=== PATIENT | female | born 1990 | race Caucasian/White ===

== ENCOUNTER 2016-10-19 21:18 | Emergency (ER) | payer SELFPAY ==
[~2016-10-19 21:18] MED LIST: CIPR500T93 PO; NAPR550 PO; PYRI200T4 PO; ULTR50TA PO; Z.0.BCPILL PO
[2016-10-19 23:03] LABS: HEMATOCRIT 28.7 % (35.0-46.0); MEAN CELL VOLUME 76.7 FL (80.0-100.0); MEAN CORPUSCULAR HEMOGLOBIN 24.4 PG (27.0-34.0); MEAN CORPUSCULAR HGB CONC 31.9 % (32.0-36.0); PLATELET COUNT 194 TH/MM3 (150-450); RED BLOOD COUNT 3.75 MIL/MM3 (4.00-5.30); RED CELL DISTRIBUTION WIDTH 16.6 % (11.6-17.2); REVIEW FLAG FINAL; WHITE BLOOD COUNT 18.4 TH/MM3 (4.0-11.0)
[2016-10-19 23:10] LABS: AMPHETAMINE, URINE NEG (NEG); BARBITURATES, URINE NEG (NEG); COCAINE, URINE NEG (NEG)
[2016-10-19 23:12] LABS: BLOOD, URINE NEG (NEG); COMMENT (UR) CULT NOT INDICATED; CULTURE IF INDICATED CULT NOT INDICATED; GLUCOSE,URINE NEG (NEG); KETONE, URINE 10 mg/dL (NEG); MUCUS URINE FEW /lpf (OCC); NITRITE,URINE NEG (NEG); PH, URINE 6.5 (5.0-8.5); SQUAMOUS EPITHELIAL CELL URINE 2 /hpf (0-5); URINE COLOR YELLOW (YELLW/STRAW)
[2016-10-19 23:19] LABS: ALT (GPT) 13 U/L (10-53); ANION GAP 9 MEQ/L (5-15); AST (GOT) 13 U/L (15-37); BICARBONATE 25.4 MEQ/L (21.0-32.0); BLOOD UREA NITROGEN 7 MG/DL (7-18); CHLORIDE 104 MEQ/L (98-107); GLOMERULAR FILTRATION RATE 151 ML/MIN (>89); POTASSIUM 3.6 MEQ/L (3.5-5.1); SODIUM (NA) 138 MEQ/L (136-145)
[2016-10-19 23:21] LABS: ALKALINE PHOSPHATASE 84 U/L (45-117); TOTAL BILIRUBIN ADULT 0.2 MG/DL (0.2-1.0)
[2016-10-19] MEDS ORDERED: DULC10SU3 RECTAL (23:48)
[2016-10-19] MEDS ORDERED: CEPH-460 PO (23:49)
--- NOTE | 2016-10-19 23:49 | PD ---
HPI Chief Complaint Abdominal and back pain, no BM and last 4 days Date Seen: Oct 19, 2016 Travel History International Travel<30 Days: No Contact w/Intl Traveler<30Days: No Known Affected Area: No History of Present Illness HPI 26-year-old white female at 24 weeks who is here on vacation is from out of town [facility] presents complaining of severe abdominal and back pain started earlier today. Denies bleeding or leakage of fluid. heart tones are reactive for 24 weeks and no contractions seen Para: 1 : 6 History Obstetric History Obstetric History One vaginal delivery 4 early ABs Social History Alcohol Use: No Tobacco Use: No Substance Abuse: No Allergies-Medications (Allergen,Severity, Reaction): Coded Allergies: Lortab (Verified Allergy, Severe, VOMITING, 08/17/12) Home Meds Active Scripts Ciprofloxacin HCl (Cipro)500 Mg [id number] Mg PO BID #20 Prov:Brooklyn Contreras MD 08/18/12 Phenazopyridine Hcl (Pyridium)200 Mg [id number] Mg PO Q8HPRN #6 Prov:Brooklyn Contreras MD 08/18/12 Naproxen Sodium (Anaprox Ds)550 Mg [id number] Mg PO BIDPRN #20 Prov:Brooklyn Contreras MD 08/18/12 Reported Medications Miscellaneous ( Control Pills) Tab1 Tab PO DAILY 08/17/12 Tramadol HCl (Ultram)50 Mg Tab50 Mg PO Q6HPRN 08/17/12 Review of Systems General / Constitutional: No: Fever, Weight Gain, Chills, Other Eyes: No: Diploplia, Blurred Vision, Visual changes, Pain, Photophobia HENT: No: Headaches, Vertigo, Lightheadedness Cardiovascular: No: Irregular Rhythm, Chest Pain or Discomfort, Palpitations, Tachycardia, Syncope, Varicosities, Edema, Cyanosis Respiratory: No: Cough, Short of Breath, Other Gastrointestinal: Abdominal Pain, Constipation, No: Nausea, Vomiting, Diarrhea Genitourinary: No: Decreased Urinary Output, Oliguria Musculoskeletal: No: Limited ROM, Weakness, Cramping, Edema, Pain Skin: No Rash, No Itching, No Dryness, No Lumps, No Change in Pigmentation, No Change in Nails, No Alopecia, No Lesions Neurologic: No: Weakness, Dizziness, Syncope, Focal Abnormalities, Coordination Problem, Headache, Slurred Speech, Seizures Psychiatric: No: Depression, Suicidal Ideations, Homicidal Ideation Endocrine: No: Heat Intolerance, Cold Intolerance, Polydipsia, Polyuria, Other Physical Exam Narrative GENERAL: Well-nourished, well-developed patient. SKIN: Warm and dry. HEAD: Normocephalic and atraumatic. EYES: No scleral icterus. No injection or drainage. ENT: No nasal drainage noted. Mucous membranes pink. Airway patent. NECK: Supple, trachea midline. No JVD. CARDIOVASCULAR: Regular rate and rhythm without murmurs, gallops, or rubs. RESPIRATORY: Breath sounds equal bilaterally. No accessory muscle use. BREASTS: Bilateral exam showed no masses , no retractions, no nipple discharge. ABDOMEN/GI: Abdomen soft, 2+-tender, bowel sounds present, no rebound, no guarding Gravid to [24-] weeks size Fundal Height: [24-] GENITOURINARY: External Genitalia: intact and normal in appearance moderate hard stool noted on exam Cervix: [-] Dilatation: [-Closed] Effacement: [-] thick Station: [-3] Membranes: [intact ] Uterine Contractions: [none-] FHT's: Category: [-1] Baseline: [-133] Reactive: [-yes] Variability: [mod-] Decels: [-0] EXTREMITIES: No cyanosis or edema. BACK: Nontender without obvious deformity. No CVA tenderness. NEUROLOGICAL: Awake and alert. Motor and sensory grossly within normal limits. Five out of 5 muscle strength in all muscle groups. Normal speech. Data Data Orders Vital Signs (Adult) .ON ADMISSION (10/19/16 22:36) ^ Labor Status (10/19/16 22:36) Urinalysis - C+S If Indicated (10/19/16 22:36) Cbc No Diff, Includes Plts (10/19/16 22:36) Comprehensive Metabolic Panel (10/19/16 22:36) Ob/Psych Drug Screen, Urine (10/19/16 22:36) Fibronectin (10/19/16 22:38) Ur Bath Salts (10/19/16 22:48) Ur Heroin (10/19/16 22:48) Ur K2 Spice (10/19/16 22:48) Ur Ecstasy (10/19/16 22:48) Phencyclidine Urine (Pcp) (10/19/16 22:48) Labs Laboratory Tests Test 10/19/16 10/19/16 22:41 22:48 White Blood Count 18.4 Red Blood Count 3.75 Hemoglobin 9.2 Hematocrit 28.7 Mean Corpuscular Volume 76.7 Mean Corpuscular Hemoglobin 24.4 Mean Corpuscular Hemoglobin 31.9 Concent Red Cell Distribution Width 16.6 Platelet Count 194 Mean Platelet Volume 9.0 Sodium Level 138 Potassium Level 3.6 Chloride Level 104 Carbon Dioxide Level 25.4 Anion Gap 9 Blood Urea Nitrogen 7 Creatinine 0.49 Estimat Glomerular Filtration 151 Rate Random Glucose 126 Calcium Level 8.7 Total Bilirubin 0.2 Aspartate Amino Transf 13 (AST/SGOT) Alanine Aminotransferase 13 (ALT/SGPT) Alkaline Phosphatase 84 Total Protein 7.4 Albumin 3.1 Urine Color YELLOW Urine Turbidity CLEAR Urine pH 6.5 Urine Specific [place] 1.023 Urine Protein TRACE Urine Glucose (UA) NEG Urine Ketones 10 Urine Occult Blood NEG Urine Nitrite NEG Urine Bilirubin NEG Urine Urobilinogen 2.0 Urine Leukocyte Esterase TRACE Urine RBC 1 Urine WBC 2 Urine Squamous Epithelial 2 Cells Urine Mucus FEW Microscopic Urinalysis Comment CULT NOT INDICATED Urine Opiates Screen NEG Urine Barbiturates Screen NEG Urine Amphetamines Screen NEG Urine Benzodiazepines Screen NEG Urine Cocaine Screen NEG Urine Cannabinoids Screen NEG MDM Interpretation(s) Patient is 26-year-old white female at 24 weeks who presented registered us from out of town originally [facility] who presents complaining of pain in abdomen and back 4 days constipation describing how she needs to move her bowels, she went to the bathroom, she was here in OB ED and get some relief , on digital exam could feel a lot of hard stool in the rectal vault, urinalysis negative, WBC 18,000 otherwise normal labs within normal limits. Plan Plan to send home with Dulcolax suppositories, she is to use Colace for stool softener, also provide a prescription for Keflex by mouth Diagnosis Diagnosis: Primary Impression: 24 weeks gestation of Additional Impressions: Abdominal pain during in second trimester Low back pain during in second trimester Constipation Disposition: DISCHARGE HOME Condition: Stable Scripts Cephalexin (Keflex)500 Mg [id number] Mg PO Q8H #21 CAP Ref 0 Prov:Reji Mckeon II, MD 10/19/16 Bisacodyl Supp (Dulcolax Supp)10 Mg Supp10 Mg RECTAL DAILY PRN (CONSTIPATION) # 12 SUPP Ref 0 Prov:Reji Mckeon II, MD 10/19/16 Patient Instructions: General Instructions, Early Labor Signs (ED), Movement (ED), Abdominal Pain in (ED) Departure Forms: Tests/Procedures Reji Mckeon II, MD Oct 19, 2016 23:49
[2016-10-24 09:11] LABS: BATH SALTS (MDPV) UR NEG (NEG); ECSTASY (MDMA) UR NEG (NEG); GABAPENTIN UR NEG (NEG); HEROIN (6-ACETYLMORPHINE) UR NEG (NEG); HYDROMORPHONE U NEG (NEG); K2 SPICE UR NEG (NEG); OBMETHADONE UR NEG (NEG); OXYCODONE (PERCODAN) NEG (NEG); PHENCYCLIDINE URINE NEG (NEG)
== END 2016-10-19 23:55 | disposition home or self-care (01) ==
LOC: HOBED 21:18
DX: O26.899 Other specified pregnancy related conditions, unspecified trimester (principal); K59.00 Constipation, unspecified; R10.9 Unspecified abdominal pain; M54.5 Low back pain; Z3A.24 24 weeks gestation of pregnancy; Z79.899 Other long term (current) drug therapy
CPT/HCPCS: 36415; 80053; 80307; 81001; 85027; 99283; G0481